=== PATIENT | female | born 1995 | race Asian ===

== ENCOUNTER 2025-01-28 02:28 | Inpatient (IN) ==
--- NOTE | 2025-01-28 02:37 | Obstetrical Progress Note ---
Date of Service January 28, 2025 PG Care Time/CCT Total # of Minutes Spent Total Time Spent with Patient: Total time spent is greater than 50% in coordination of care (as documented) at patient's floor/unit and/or counseling patient: Coding
[2025-01-28] MEDS ORDERED: ACETAMINOPHEN 325 MG TAB PO PRN (03:10)
[2025-01-28] MEDS ORDERED: LIDOCAINE 1% LOCAL 20 ML VIAL INFIL PRN (03:10)
--- NOTE | 2025-01-28 03:13 | History & Physical Report ---
Date of Service January 28, 2025 Assessment & Plan (1) PROM (premature rupture of membranes): Plan PProm. admit for expectant management at present. pitocin aug as indicated. Treat for gbs as status unknown. fetus category one. epidural on demand. anticipate vaginal delivery. History of Present Illness Chief Complaint: rom Primary Care Provider: NO PCP Patient is a 29yof g1 with iup at 36 4/7 who presents complaining of srom at 2am. Clear fluid. Notes some blood tinge on TP here. Not feeling alot of contractions Growth us 01/05--efw 81%, ac 93% and Delivery Plans Persistent umbilical vein *MFM consult 10/23/24, persistent right umbilical vein noted type 1 -->growth u/s 32wks --> echo Normal Fibroid of uterus *noted by MFM H&H 29.1/9.5 on 12/01/24 Started Fe around 31 wks. repeat H&H in 4 weeks OB Labs: Blood Type B Positive 07/24/24 Antibody Screen NEGATIVE 07/24/24 Hgb 9.5 g/dl (12.0-16.0) L 12/01/24 Hct 29.1 % (37.0-47.0) L 12/01/24 MCV 84.1 fL (80.0-100.0) 07/24/24 Plt Count 208 K/uL (130-400) 07/24/24 Rubella IgG Antibody Immune (Immune) 07/24/24 Treponema pallidum Ab Negative (Negative) 12/01/24 Hep Bs Antigen Negative (Negative) 07/24/24 Hepatitis C Antibody Negative (Negative) 07/24/24 HIV 1&2 Ab/P24 Ag 4thGn Negative (Negative) 07/24/24 Glucose 1 Hr 50 gm 140 mg/dl (70-130) H 12/01/24 OB Optional Labs: Chlamydia trachomatis RNA Not Detected (NotDetected) 07/24/24 Neisseria gonorrhoeae RNA Not Detected (NotDetected) 07/24/24 Neg horizon low risk panorama gbs not collected yet Allergies Allergy/AdvReac Type Severity Reaction Status Date / Time No Known Allergies Allergy Verified 01/28/25 02:47 Home Medications Medication Instructions Recorded Confirmed Type ferrous sulfate 325 mg (65 mg 325 mg PO DAILY 01/28/25 01/28/25 History iron) tablet (iron) vits no.124-ferrous fum 1 tab PO DAILY 01/28/25 01/28/25 History 27 mg iron-folic acid 800 mcg tablet ( Vitamin) Patient History Medical History History of chicken pox Surgical History No history of previous surgery Family History Grandmother (Paternal) Colorectal cancer Mother Hypertension Father Hypertension Denies family history of Ovarian cancer Breast cancer Social History Smoking Status: Never smoker Do You Dip or Chew Tobacco: No; Hx Alcohol Use: No Hx Substance Use: No Preferred Language: [place] Citizen Communication Ability: Effective Incident Response Manager Required: No Beliefs That Will Affect Care: None marital status: marital status details: Flaquito Juan (32) Current Living Situation: Spouse Current Living Situation Comment: lives with spouse, no pets current occupational status: unemployed Other Information That Helps Us Care for You: No Feels Safe at Home: Yes Safety Concerns: Feels Safe At This Time Assistive Devices: None OB History g1--present [employer] History noncontributory Physical Exam Constitutional: WD/WN, vitals as above Gastrointestinal (Abdomen): soft, gravid, nt Psychiatric: A+Ox3, euthymic affect Genitourinary: sse--grossly ruptured, clear cx--1.5/75/-2 toco--q3-6min efm--130s with mod variability, accels to 150s, no decels Results & Data Vital Signs (Past 12 Hours) Vital Signs Temp Pulse Resp BP 01/28/25 02:43 36.8 C 83 16 105/61 Coding Level of Care Code None Diagnoses PROM (premature rupture of membranes) O42.90
[2025-01-28] MEDS: LACTATED RINGER'S 1,000 ML IV PRN (03:19)
[2025-01-28] MEDS: PENICILLIN GK 6 MU in DEXTROSE 5% 250 ML IV STA (03:34)
[2025-01-28 03:37] LABS: Hematocrit (blood only) 33.1 % (37.0-47.0); Hemoglobin 11.2 g/dL (12.0-16.0); Mean Corpuscular Hemoglobin 30.0 pg (25.0-34.0); Mean Corpuscular Volume 88.7 fL (80.0-100.0); Platelet Count 146 K/uL (130-400); RDW Standard Deviation 43.4 fL (36.4-46.3); Red Blood Count 3.73 M/uL (4.20-5.40); White Blood Count 6.91 K/ul (4.8-10.8)
[2025-01-28] MEDS: PENICILLIN GK 3 MU in DEXTROSE 5% 100 ML IV PRN (07:30)
--- NOTE | 2025-01-28 07:35 | Labor Progress Brief Note ---
Date of Service January 28, 2025 Subjective patient noting some contractions but not uncomfortable Assessment & Plan (1) PROM (premature rupture of membranes): Plan no significant change. Discussed pros/cons of continued expectant management vs. pit oct now. Patient desires to wait a little longer but will accept if no change by 10am ( 8 yrs post rom). Fetus category one. Admission and Anticipated Discharge Date Admission Date: January 28, 2025 Physical Exam Physical Exam: cx--2/-2 toco--irregular contractions efm--130s with mod variability, accels present, no decels. Results & Data Vital Signs (Past 12 Hours) Vital Signs Temp Pulse Resp BP 01/28/25 07:05 70 95/56 L 01/28/25 06:20 22 01/28/25 05:16 36.8 C 88 16 92/51 L 01/28/25 02:43 36.8 C 83 16 105/61 Coding Level of Care Code None Diagnoses PROM (premature rupture of membranes) O42.90
[2025-01-28] MEDS: OXYTOCIN 30 UNITS/NSS 30 UNITS/500 ML BAG IV PRN (09:00)
--- NOTE | 2025-01-28 09:02 | Labor Progress Brief Note ---
Date of Service January 28, 2025 Subjective pt resting in bed. denies ctx. pcn infusing for gbs unknown. Assessment & Plan (1) 36 weeks gestation of : (2) PROM (premature rupture of membranes): Plan still no labor. advised pitocin now as was recommended before but pt refused and pt does agree to start, now 7 hr after prom. start pitocin. fhts categ 1. pcn for gbs unknown. Admission and Anticipated Discharge Date Admission Date: January 28, 2025 Physical Exam Constitutional: WD/WN, vitals as above Genitourinary: OB Exam Monitor Tracing: + external FHT monitor used, + external uterine monitor used (no ctx), + category I and + normal FHT variability Results & Data Vital Signs (Past 12 Hours) Vital Signs Temp Pulse Resp BP 01/28/25 08:56 72 110/73 01/28/25 07:05 70 95/56 L 01/28/25 06:20 22 01/28/25 05:16 98.2 F 88 16 92/51 L 01/28/25 02:43 98.2 F 83 16 105/61 Coding Level of Care Code None Diagnoses 36 weeks gestation of Z3A.36 PROM (premature rupture of membranes) O42.90
[2025-01-28] MEDS ORDERED: LIDOCAINE 2% MPF LOCAL 5 ML VIAL EPI PRN (12:53)
[2025-01-28] MEDS ORDERED: NALOXONE HCL 0.4 MG/1 ML VIAL/CARP IV PRN (12:53)
[2025-01-28] MEDS ORDERED: SODIUM CHLORIDE 0.9% PF INJ 10 ML VIAL EPI PRN (12:53)
[2025-01-28] MEDS ORDERED: NALOXONE HCL 1 MG in SODIUM CHLORIDE 0.9% 1,000 ML IV PRN (12:53)
[2025-01-28] MEDS ORDERED: BUPIVACAINE 0.25% PF 30 ML VIAL EPI PRN (12:53)
[2025-01-28] MEDS ORDERED: NALBUPHINE HCL INJ 10 MG/ML AMP IV PRN (12:53)
[2025-01-28] MEDS ORDERED: diphenhydrAMINE 50 MG/ML VIAL IV PRN (12:53)
[2025-01-28] MEDS ORDERED: ROPIVACAINE 0.5% PF 5 MG/ML 20 ML VIAL EPI PRN (12:53)
--- NOTE | 2025-01-28 12:53 | Anesthesiology Consultation ---
Date of Service January 28, 2025 Assessment & Plan Chart Review Chart Review: Acceptable Risk for Labor Epidural Consults Requested none History Height/Weight Height: 5 ft 3 in Weight: 57.153 kg Allergies Allergy/AdvReac Type Severity Reaction Status Date / Time No Known Allergies Allergy Verified 01/28/25 02:47 Medications Home Medications Medication Instructions Recorded Confirmed Last Taken ferrous sulfate 325 mg (65 mg 325 mg PO DAILY 01/28/25 01/28/25 01/27/25 iron) tablet (iron) vits no.124-ferrous fum 1 tab PO DAILY 01/28/25 01/28/25 01/27/25 27 mg iron-folic acid 800 mcg tablet ( Vitamin) Active Medications Generic Name Dose Route Start Last Admin Trade Name Freq PRN Reason Stop Dose Admin Lactated Ringer's 1,000 mls @ 125 mls/hr 01/28/25 03:10 01/28/25 07:45 Lr IV 01/30/25 03:09 125 mls/hr .Q8H PRN Infusion L&D Protocol Protocol Penicillin G Potassium 3 mu/ 106 mls @ 100 mls/hr 01/28/25 06:10 01/28/25 11:30 Dextrose IV 02/07/25 06:09 100 mls/hr Q4H PRN Administration GBS(+) Until Delivery Oxytocin 30 units in 500 mls @ 15 mls/hr 01/28/25 07:32 01/28/25 12:30 Pitocin 30 Units/Nss IV 01/30/25 07:31 0.9 units/hr .Q24H PRN 15 mls/hr Labor Induction/Augmentation Titration Protocol 0.9 UNITS/HR Past Medical History Medical History History of chicken pox Past Family History Family History Grandmother (Paternal) Colorectal cancer Mother Hypertension Father Hypertension Denies family history of Ovarian cancer Breast cancer Past Surgical History Surgical History No history of previous surgery Social History Smoking Status: Never smoker Do You Dip or Chew Tobacco: No Hx Alcohol Use: No Hx Substance Use: No substance use type: does not use Physical Exam Vital Signs Last Vital Signs Temp 37.0 C 01/28/25 12:39 Pulse 66 01/28/25 12:33 Resp 18 01/28/25 12:39 BP 111/70 01/28/25 12:33 Testing Laboratory Results 01/28/25 03:24
[2025-01-28] MEDS: LIDOCAINE 2%/EPINEPHRINE 1:200,000 20 ML PF ONE (13:10)
[2025-01-28] MEDS: fentANYL 2 MCG/ML BUPIVacaine 0.125%-NSS 100ML BAG ONE (13:20)
[2025-01-28] MEDS: SODIUM CHLORIDE 0.9% PF INJ 10 ML VIAL ONE (13:30)
[2025-01-28] MEDS: LIDOCAINE 2%/EPINEPHRINE 1:200,000 20 ML PF EPI STA (13:30)
[2025-01-28] MEDS: BUPIVACAINE 0.25% PF 30 ML VIAL EPI STA (13:31)
[2025-01-28] MEDS: BUPIVACAINE 0.25% PF 30 ML VIAL ONE (13:31)
[2025-01-28] MEDS: SODIUM CHLORIDE 0.9% PF INJ 10 ML VIAL EPI STA (13:31)
--- NOTE | 2025-01-28 16:17 | Labor Progress Brief Note ---
Date of Service January 28, 2025 Subjective comfortable Assessment & Plan (1) 36 weeks gestation of : (2) PROM (premature rupture of membranes): Plan good cx change. c/w pit and pcn. fhts categ 1 Admission and Anticipated Discharge Date Admission Date: January 28, 2025 Physical Exam Constitutional: WD/WN, vitals as above Genitourinary: Manual OB Exam: + cervical dilation 4 cm, + cervical effacement 100% and + station -1 Results & Data Vital Signs (Past 12 Hours) Vital Signs Temp Pulse Resp BP Pulse Ox 01/28/25 16:11 70 100 01/28/25 16:06 81 100 01/28/25 16:02 84 106/65 01/28/25 16:01 75 100 01/28/25 15:56 82 100 01/28/25 15:51 95 H 100 01/28/25 15:46 100 01/28/25 15:46 83 01/28/25 15:46 75 105/63 01/28/25 15:41 66 100 01/28/25 15:36 65 100 01/28/25 15:32 98.4 F 66 16 113/76 01/28/25 15:31 75 97 01/28/25 15:27 77 87/54 L 01/28/25 15:26 83 100 01/28/25 15:21 97 H 100 01/28/25 15:16 93 H 113/68 100 01/28/25 15:11 83 97 01/28/25 15:06 75 98 01/28/25 15:02 83 104/68 01/28/25 15:01 86 99 01/28/25 14:56 65 99 01/28/25 14:51 68 99 01/28/25 14:46 100 01/28/25 14:46 74 01/28/25 14:46 85 111/68 01/28/25 14:41 75 100 01/28/25 14:36 83 100 01/28/25 14:32 88 113/63 01/28/25 14:31 86 100 01/28/25 14:26 72 100 01/28/25 14:21 74 100 01/28/25 14:20 16 01/28/25 14:20 98.1 F 16 01/28/25 14:16 69 100 01/28/25 14:15 73 100/65 01/28/25 14:11 83 99 01/28/25 14:06 80 100 01/28/25 14:01 100 01/28/25 14:01 69 01/28/25 14:01 75 95/59 L 01/28/25 13:56 69 100 01/28/25 13:51 66 100 01/28/25 13:46 77 90/52 L 100 01/28/25 13:41 70 99 01/28/25 13:36 72 100 01/28/25 13:31 69 99 01/28/25 13:30 67 98/53 L 01/28/25 13:28 72 98/56 L 01/28/25 13:26 74 100 01/28/25 13:25 68 97/55 L 01/28/25 13:22 72 99/56 L 01/28/25 13:21 68 100 01/28/25 13:19 71 97/53 L 01/28/25 13:16 100 01/28/25 13:16 64 01/28/25 13:16 71 97/55 L 01/28/25 13:11 69 100 01/28/25 13:06 74 100 01/28/25 13:01 83 100 01/28/25 12:56 77 100 01/28/25 12:39 18 01/28/25 12:39 98.6 F 18 01/28/25 12:33 98.6 F 66 111/70 01/28/25 11:30 73 113/70 01/28/25 10:24 98.4 F 71 16 107/65 01/28/25 09:03 18 01/28/25 09:03 98.8 F 18 01/28/25 08:56 72 110/73 01/28/25 07:05 70 95/56 L 01/28/25 06:20 22 01/28/25 05:16 98.2 F 88 16 92/51 L Coding Level of Care Code None Diagnoses 36 weeks gestation of Z3A.36 PROM (premature rupture of membranes) O42.90
--- NOTE | 2025-01-28 17:54 | Labor Progress Brief Note ---
Date of Service January 28, 2025 Subjective comfortable Assessment & Plan (1) 36 weeks gestation of : (2) PROM (premature rupture of membranes): Plan good cx change. c/w pit. fhts categ 1. begin 2nd stage soon. Admission and Anticipated Discharge Date Admission Date: January 28, 2025 Physical Exam Constitutional: WD/WN, vitals as above Genitourinary: Manual OB Exam: + cervical dilation 9 cm, + cervical effacement 100% and + station + 2 OB Exam Monitor Tracing: + external FHT monitor used, + external uterine monitor used (q2-3, pit at 19), + category I and + normal FHT variability Results & Data Vital Signs (Past 12 Hours) Vital Signs Temp Pulse Resp BP Pulse Ox 01/28/25 17:46 74 111/65 100 01/28/25 17:41 85 100 01/28/25 17:36 80 100 01/28/25 17:32 78 114/64 01/28/25 17:31 80 100 01/28/25 17:26 84 100 01/28/25 17:21 92 H 100 01/28/25 17:17 73 106/60 01/28/25 17:16 71 100 01/28/25 17:11 66 100 01/28/25 17:06 73 100 01/28/25 17:05 18 01/28/25 17:05 98.1 F 18 01/28/25 17:01 100 01/28/25 17:01 67 01/28/25 17:01 74 107/66 01/28/25 16:56 71 100 01/28/25 16:51 70 100 01/28/25 16:47 67 103/66 01/28/25 16:46 67 100 01/28/25 16:41 70 100 01/28/25 16:36 70 100 01/28/25 16:31 93 H 105/66 99 01/28/25 16:26 70 100 01/28/25 16:21 69 100 01/28/25 16:16 100 01/28/25 16:16 78 01/28/25 16:16 75 110/70 01/28/25 16:11 70 100 01/28/25 16:06 81 100 01/28/25 16:02 84 106/65 01/28/25 16:01 75 100 01/28/25 15:56 82 100 11/12/25 15:51 95 H 100 01/28/25 15:46 100 01/28/25 15:46 83 01/28/25 15:46 75 105/63 01/28/25 15:41 66 100 01/28/25 15:36 65 100 01/28/25 15:32 98.4 F 66 16 113/76 01/28/25 15:31 75 97 01/28/25 15:27 77 87/54 L 01/28/25 15:26 83 100 01/28/25 15:21 97 H 100 01/28/25 15:16 93 H 113/68 100 01/28/25 15:11 83 97 01/28/25 15:06 75 98 01/28/25 15:02 83 104/68 01/28/25 15:01 86 99 01/28/25 14:56 65 99 01/28/25 14:51 68 99 01/28/25 14:46 100 01/28/25 14:46 74 01/28/25 14:46 85 111/68 01/28/25 14:41 75 100 01/28/25 14:36 83 100 01/28/25 14:32 88 113/63 01/28/25 14:31 86 100 01/28/25 14:26 72 100 01/28/25 14:21 74 100 01/28/25 14:20 16 01/28/25 14:20 98.1 F 16 01/28/25 14:16 69 100 01/28/25 14:15 73 100/65 01/28/25 14:11 83 99 01/28/25 14:06 80 100 01/28/25 14:01 100 01/28/25 14:01 69 01/28/25 14:01 75 95/59 L 01/28/25 13:56 69 100 01/28/25 13:51 66 100 01/28/25 13:46 77 90/52 L 100 01/28/25 13:41 70 99 01/28/25 13:36 72 100 01/28/25 13:31 69 99 01/28/25 13:30 67 98/53 L 01/28/25 13:28 72 98/56 L 01/28/25 13:26 74 100 01/28/25 13:25 68 97/55 L 01/28/25 13:22 72 99/56 L 01/28/25 13:21 68 100 01/28/25 13:19 71 97/53 L 01/28/25 13:16 100 01/28/25 13:16 64 01/28/25 13:16 71 97/55 L 01/28/25 13:11 69 100 01/28/25 13:06 74 100 01/28/25 13:01 83 100 01/28/25 12:56 77 100 01/28/25 12:39 18 01/28/25 12:39 98.6 F 18 01/28/25 12:33 98.6 F 66 111/70 01/28/25 11:30 73 113/70 01/28/25 10:24 98.4 F 71 16 107/65 01/28/25 09:03 18 01/28/25 09:03 98.8 F 18 01/28/25 08:56 72 110/73 01/28/25 07:05 70 95/56 L 01/28/25 06:20 22 Coding Level of Care Code None Diagnoses 36 weeks gestation of Z3A.36 PROM (premature rupture of membranes) O42.90
--- NOTE | 2025-01-28 20:14 | Labor Progress Brief Note ---
Date of Service January 28, 2025 Subjective pt pushing. Assessment & Plan (1) 36 weeks gestation of : (2) PROM (premature rupture of membranes): Plan is pushing. fhts categ1. Admission and Anticipated Discharge Date Admission Date: January 28, 2025 Physical Exam Constitutional: WD/WN, vitals as above Genitourinary: Manual OB Exam: + cervical dilation 10 cm OB Exam Monitor Tracing: + external FHT monitor used, + external uterine monitor used, + category I, + normal FHT variability and + variable decelerations isolated Results & Data Vital Signs (Past 12 Hours) Vital Signs Temp Pulse Resp BP Pulse Ox 01/28/25 20:06 96 H 100 01/28/25 20:01 92 H 108/64 100 01/28/25 19:56 86 100 01/28/25 19:51 91 H 100 01/28/25 19:46 86 106/67 100 01/28/25 19:41 89 100 01/28/25 19:36 86 100 01/28/25 19:31 94 H 115/72 100 01/28/25 19:26 97 H 100 01/28/25 19:21 90 100 01/28/25 19:16 103 H 111/70 100 01/28/25 19:11 83 100 01/28/25 19:10 16 01/28/25 19:10 98.2 F 16 01/28/25 19:06 96 H 100 01/28/25 19:02 113 H 121/60 01/28/25 19:01 93 H 100 01/28/25 18:56 83 100 01/28/25 18:51 79 100 01/28/25 18:47 83 108/64 01/28/25 18:46 76 100 01/28/25 18:41 83 100 01/28/25 18:36 88 100 01/28/25 18:32 78 115/70 01/28/25 18:31 86 100 01/28/25 18:26 83 100 01/28/25 18:21 84 100 01/28/25 18:17 83 112/69 01/28/25 18:16 88 100 01/28/25 18:11 78 100 01/28/25 18:06 82 100 01/28/25 18:01 81 100 01/28/25 18:00 86 110/66 01/28/25 17:56 85 100 01/28/25 17:55 16 01/28/25 17:55 98.2 F 16 01/28/25 17:51 79 100 01/28/25 17:46 74 111/65 100 01/28/25 17:41 85 100 01/28/25 17:36 80 100 01/28/25 17:32 78 114/64 01/28/25 17:31 80 100 01/28/25 17:26 84 100 01/28/25 17:21 92 H 100 01/28/25 17:17 73 106/60 01/28/25 17:16 71 100 01/28/25 17:11 66 100 01/28/25 17:06 73 100 01/28/25 17:05 18 01/28/25 17:05 98.1 F 18 01/28/25 17:01 100 01/28/25 17:01 67 01/28/25 17:01 74 107/66 01/28/25 16:56 71 100 01/28/25 16:51 70 100 01/28/25 16:47 67 103/66 01/28/25 16:46 67 100 01/28/25 16:41 70 100 01/28/25 16:36 70 100 01/28/25 16:31 93 H 105/66 99 01/28/25 16:26 70 100 01/28/25 16:21 69 100 01/28/25 16:16 100 01/28/25 16:16 78 01/28/25 16:16 75 110/70 01/28/25 16:11 70 100 01/28/25 16:06 81 100 01/28/25 16:02 84 106/65 01/28/25 16:01 75 100 01/28/25 15:56 82 100 01/28/25 15:51 95 H 100 01/28/25 15:46 100 01/28/25 15:46 83 01/28/25 15:46 75 105/63 01/28/25 15:41 66 100 01/28/25 15:36 65 100 01/28/25 15:32 98.4 F 66 16 113/76 01/28/25 15:31 75 97 01/28/25 15:27 77 87/54 L 01/28/25 15:26 83 100 01/28/25 15:21 97 H 100 01/28/25 15:16 93 H 113/68 100 01/28/25 15:11 83 97 01/28/25 15:06 75 98 01/28/25 15:02 83 104/68 01/28/25 15:01 86 99 01/28/25 14:56 65 99 01/28/25 14:51 68 99 01/28/25 14:46 100 01/28/25 14:46 74 01/28/25 14:46 85 111/68 01/28/25 14:41 75 100 01/28/25 14:36 83 100 01/28/25 14:32 88 113/63 01/28/25 14:31 86 100 01/28/25 14:26 72 100 01/28/25 14:21 74 100 01/28/25 14:20 16 01/28/25 14:20 98.1 F 16 01/28/25 14:16 69 100 01/28/25 14:15 73 100/65 01/28/25 14:11 83 99 01/28/25 14:06 80 100 01/28/25 14:01 100 01/28/25 14:01 69 01/28/25 14:01 75 95/59 L 01/28/25 13:56 69 100 01/28/25 13:51 66 100 01/28/25 13:46 77 90/52 L 100 01/28/25 13:41 70 99 01/28/25 13:36 72 100 01/28/25 13:31 69 99 01/28/25 13:30 67 98/53 L 01/28/25 13:28 72 98/56 L 01/28/25 13:26 74 100 01/28/25 13:25 68 97/55 L 01/28/25 13:22 72 99/56 L 01/28/25 13:21 68 100 01/28/25 13:19 71 97/53 L 01/28/25 13:16 100 01/28/25 13:16 64 01/28/25 13:16 71 97/55 L 01/28/25 13:11 69 100 01/28/25 13:06 74 100 01/28/25 13:01 83 100 01/28/25 12:56 77 100 01/28/25 12:39 18 01/28/25 12:39 98.6 F 18 01/28/25 12:33 98.6 F 66 111/70 01/28/25 11:30 73 113/70 01/28/25 10:24 98.4 F 71 16 107/65 01/28/25 09:03 18 01/28/25 09:03 98.8 F 18 01/28/25 08:56 72 110/73 Coding Level of Care Code None Diagnoses 36 weeks gestation of Z3A.36 PROM (premature rupture of membranes) O42.90
[2025-01-28] MEDS: CALCIUM CARBONATE 500 MG CHEWABLE TAB PO PRN (20:49)
[2025-01-28] MEDS: ONDANSETRON INJ 2 MG/ML 2 ML VIAL ONE (21:09)
[2025-01-28] MEDS: ONDANSETRON INJ 2 MG/ML 2 ML VIAL IV STA (21:13)
[2025-01-28] MEDS: fentANYL 2 MCG/ML BUPIVacaine 0.125%-NSS 100ML BAG EPI PRN (21:44)
--- NOTE | 2025-01-28 23:04 | Communication Note ---
Date of Service: January 28, 2025 with existing epidural.
[2025-01-28] MEDS ORDERED: LIDOCAINE 2%/EPINEPHRINE 1:200,000 20 ML PF ONE (23:07)
--- NOTE | 2025-01-28 23:53 | Labor Progress Brief Note ---
Date of Service January 28, 2025 Subjective ctsp by nurse to assess pt pushing. nurse not noting any significant maternal effort. pt pushing for about 1.5h. on arrival pt in bed, spouse at bedside. Assessment & Plan (1) 36 weeks gestation of : (2) PROM (premature rupture of membranes): Plan assessment of pt pushing shows no real maternal effort given. cannot offer vacuum assistance and therefore if not willing to give effective pushing or if pushing not resulting in descent, rec proceeding with c/s. at this time categ 2 tracing as well that was worrisome, pt was repositioned and ultimately pitocin stopped. she and spouse at first state ready to proceed with c/s but then upon bringing in consent, patient expresses desire to feel more at perineum so that she can try to push more effectively and expresses desire to cont expulsive efforts. as this conversation happening, decels were lessening as far as deep variables and spont accels noted with normal baseline variability in between ctx. coached pt in pushing through additional ctx and baby tolerated that well. anesth was present and given pt desires to feel more, epidural was stopped. pt apparently had signifcant pain prior to getting the epidural and was reminded of this but she still wanted to attempt feeling more so she could try to push more effectively. at this point fhts categ 1 but with ctx spacing out and so pit restarted at 12 (half of prior dosing). pt will begin pushing with more of urge to push. anesth and peds notified of proceeding to OR and now notified that is on hold as pt desires this plan and given fhts categ 1 ok to be more remote from delivery at this point. spent time at bedside with couple and they are aware of risks, benefits of plan and consequences and alt of proceeding with c/s now. the latter of which pt states she does not prefer if she can feel more to push. Admission and Anticipated Discharge Date Admission Date: January 28, 2025 Physical Exam Constitutional: WD/WN, vitals as above Genitourinary: Manual OB Exam: + cervical dilation 10 cm, + cervical effacement 100% and + station + 2 (molding ) OB Exam Monitor Tracing: + external FHT monitor used, + external uterine monitor used (q2-3 pit at 23), + category II, + normal FHT variability and + variable decelerations recurrent pushed with patient x 2-3 ctx. no maternal effort noted. pt appears exhausted but more concerned that she cannot feel significant urge to push. Results & Data Vital Signs (Past 12 Hours) Vital Signs Temp Pulse Resp BP Pulse Ox 01/28/25 23:36 87 100 01/28/25 23:31 77 100 01/28/25 23:30 81 100/60 01/28/25 23:26 84 100 01/28/25 23:21 89 100 01/28/25 23:17 78 101/60 01/28/25 23:16 89 100 01/28/25 23:11 81 100 01/28/25 23:06 119 H 97 01/28/25 23:01 100 01/28/25 23:01 89 01/28/25 23:01 80 109/58 L 01/28/25 22:56 88 99 01/28/25 22:51 90 99 01/28/25 22:50 101 H 90 01/28/25 22:46 81 111/59 L 97 01/28/25 22:45 86 88 L 01/28/25 22:41 106 H 98 01/28/25 22:36 109 H 99 01/28/25 22:33 106 H 93 01/28/25 22:31 98 01/28/25 22:31 82 01/28/25 22:31 81 104/58 L 01/28/25 22:26 93 H 98 01/28/25 22:22 121 H 92 01/28/25 22:21 105 H 97 01/28/25 22:16 85 109/58 L 99 01/28/25 22:11 113 H 95 01/28/25 22:08 105 H 91 01/28/25 22:06 114 H 97 01/28/25 22:02 114 H 91 01/28/25 22:01 107 H 97 01/28/25 21:56 102 H 97 01/28/25 21:51 103 H 96 01/28/25 21:46 95 01/28/25 21:46 98 H 01/28/25 21:46 83 103/59 L 01/28/25 21:44 105 H 92 01/28/25 21:41 95 H 98 01/28/25 21:37 108 H 89 L 01/28/25 21:36 88 98 01/28/25 21:31 90 106/73 99 01/28/25 21:30 116 H 92 01/28/25 21:26 87 100 01/28/25 21:21 88 97 01/28/25 21:17 88 114/70 01/28/25 21:16 87 96 01/28/25 21:15 16 01/28/25 21:15 98.4 F 16 01/28/25 21:11 84 98 01/28/25 21:06 102 H 98 01/28/25 21:01 100 01/28/25 21:01 105 H 01/28/25 21:01 97 H 108/67 01/28/25 20:56 102 H 99 01/28/25 20:51 117 H 98 01/28/25 20:46 96 01/28/25 20:46 124 H 01/28/25 20:46 126 H 115/72 01/28/25 20:41 137 H 98 01/28/25 20:37 86 93 01/28/25 20:36 84 100 01/28/25 20:31 97 H 112/59 L 100 01/28/25 20:26 94 H 100 01/28/25 20:21 104 H 100 01/28/25 20:16 132 H 99 01/28/25 20:11 97 H 99 01/28/25 20:06 96 H 100 01/28/25 20:01 92 H 108/64 100 01/28/25 19:56 86 100 01/28/25 19:51 91 H 100 01/28/25 19:46 86 106/67 100 01/28/25 19:41 89 100 01/28/25 19:36 86 100 01/28/25 19:31 94 H 115/72 100 01/28/25 19:26 97 H 100 01/28/25 19:21 90 100 01/28/25 19:16 103 H 111/70 100 01/28/25 19:11 83 100 01/28/25 19:10 16 01/28/25 19:10 98.2 F 16 01/28/25 19:06 96 H 100 01/28/25 19:02 113 H 121/60 01/28/25 19:01 93 H 100 01/28/25 18:56 83 100 01/28/25 18:51 79 100 01/28/25 18:47 83 108/64 01/28/25 18:46 76 100 01/28/25 18:41 83 100 01/28/25 18:36 88 100 01/28/25 18:32 78 115/70 01/28/25 18:31 86 100 01/28/25 18:26 83 100 01/28/25 18:21 84 100 01/28/25 18:17 83 112/69 01/28/25 18:16 88 100 01/28/25 18:11 78 100 01/28/25 18:06 82 100 01/28/25 18:01 81 100 01/28/25 18:00 86 110/66 01/28/25 17:56 85 100 01/28/25 17:55 16 01/28/25 17:55 98.2 F 16 01/28/25 17:51 79 100 01/28/25 17:46 74 111/65 100 01/28/25 17:41 85 100 01/28/25 17:36 80 100 01/28/25 17:32 78 114/64 01/28/25 17:31 80 100 01/28/25 17:26 84 100 01/28/25 17:21 92 H 100 01/28/25 17:17 73 106/60 01/28/25 17:16 71 100 01/28/25 17:11 66 100 01/28/25 17:06 73 100 01/28/25 17:05 18 01/28/25 17:05 98.1 F 18 01/28/25 17:01 100 01/28/25 17:01 67 01/28/25 17:01 74 107/66 01/28/25 16:56 71 100 01/28/25 16:51 70 100 01/28/25 16:47 67 103/66 01/28/25 16:46 67 100 01/28/25 16:41 70 100 01/28/25 16:36 70 100 01/28/25 16:31 93 H 105/66 99 01/28/25 16:26 70 100 01/28/25 16:21 69 100 01/28/25 16:16 100 01/28/25 16:16 78 01/28/25 16:16 75 110/70 01/28/25 16:11 70 100 01/28/25 16:06 81 100 11/12/25 16:02 84 106/65 01/28/25 16:01 75 100 01/28/25 15:56 82 100 01/28/25 15:51 95 H 100 01/28/25 15:46 100 01/28/25 15:46 83 01/28/25 15:46 75 105/63 01/28/25 15:41 66 100 01/28/25 15:36 65 100 01/28/25 15:32 98.4 F 66 16 113/76 01/28/25 15:31 75 97 01/28/25 15:27 77 87/54 L 01/28/25 15:26 83 100 01/28/25 15:21 97 H 100 01/28/25 15:16 93 H 113/68 100 01/28/25 15:11 83 97 01/28/25 15:06 75 98 01/28/25 15:02 83 104/68 01/28/25 15:01 86 99 01/28/25 14:56 65 99 01/28/25 14:51 68 99 01/28/25 14:46 100 01/28/25 14:46 74 01/28/25 14:46 85 111/68 01/28/25 14:41 75 100 01/28/25 14:36 83 100 01/28/25 14:32 88 113/63 01/28/25 14:31 86 100 01/28/25 14:26 72 100 01/28/25 14:21 74 100 01/28/25 14:20 16 01/28/25 14:20 98.1 F 16 01/28/25 14:16 69 100 01/28/25 14:15 73 100/65 01/28/25 14:11 83 99 01/28/25 14:06 80 100 01/28/25 14:01 100 01/28/25 14:01 69 01/28/25 14:01 75 95/59 L 01/28/25 13:56 69 100 01/28/25 13:51 66 100 01/28/25 13:46 77 90/52 L 100 01/28/25 13:41 70 99 01/28/25 13:36 72 100 01/28/25 13:31 69 99 01/28/25 13:30 67 98/53 L 01/28/25 13:28 72 98/56 L 01/28/25 13:26 74 100 01/28/25 13:25 68 97/55 L 01/28/25 13:22 72 99/56 L 01/28/25 13:21 68 100 01/28/25 13:19 71 97/53 L 01/28/25 13:16 100 01/28/25 13:16 64 01/28/25 13:16 71 97/55 L 01/28/25 13:11 69 100 01/28/25 13:06 74 100 01/28/25 13:01 83 100 01/28/25 12:56 77 100 01/28/25 12:39 18 01/28/25 12:39 98.6 F 18 01/28/25 12:33 98.6 F 66 111/70 Coding Level of Care Code None Diagnoses 36 weeks gestation of Z3A.36 PROM (premature rupture of membranes) O42.90
--- NOTE | 2025-01-29 00:07 | Communication Note ---
Date of Service: January 29, 2025 called by nursing to do strip review. baseline now 150 min variability, early decels, one late decel. pt apparently not feeling pressure, epidural has been off for 40min. will cont close evaluation. will need to push or proceed with c/s if fetus not tolerating labor pattern.
[2025-01-29] MEDS ORDERED: SODIUM CHLORIDE 0.9% 100 ML IV PRN ×2 (00:52→16:53)
[2025-01-29 01:14] LABS: Hematocrit (blood only) 30.0 % (37.0-47.0); Hemoglobin 10.2 g/dL (12.0-16.0)
--- NOTE | 2025-01-29 01:20 | Delivery Summary ---
Vaginal Delivery Summary Date of Service January 29, 2025 Vaginal Delivery Summary and 3rd Degree LAC The patient resumed maternal efforts and evidence of effective pushing. Fhts with early decels, good variability but baseline was wandering and difficult to interpret. +scalp stim response however. Offered and accepted vacuum assistance. Bladder was recently emptied. SVE c/c/+2-+3 with molding. With 2 pulls over 2 ctx and no pop-offs, she pushed to deliver a viable male infant Apgars 3, 7 and 10 via over partial 3rd degree perineal laceration. Shoulders and body delivered with ease and further maternal expulsive efforts. Mouth and nose bulb suctioned and made initial crying effort but then was not vigorous and so cord clamped and to maternal abdomen where the cord was then doubly clamped and cut. Infant taken to radiant warmer. Placenta delivered spo ntaneously and intact, three-vessel cord. Hemostasis achieved with dilute pitocin and uterine massage. Cervix intact. Bilateral sulcal tears noted L>R and reapproximated to level of introitus with 3-0 vicyrl. Partial 3rd degree laceration repaired in layers with 2-0 and 3-0 vicryl, reapproximating the fascia of the anal sphincter in interrupted sutures of 2-0 vicryl. QBL 935 cc. Patient complained of dizziness and lightheadedness during repair and delivery of placenta. BP 50/29 and pulse 101, 2nd iv site created and LR bolused. T&C x 2 units and held and stat h/h ordered. Pt began to feel better. Uterine tone and bleeding improved. Hgb returned 10 and vs improved. Mother and baby stable in recovery. [facility] Vaginal Delivery Charge Delivery Type Details: and 3rd Degree LAC
[2025-01-29] MEDS: OXYTOCIN 30 UNITS/NSS 30 UNITS/500 ML BAG IV PRN (01:25)
[2025-01-29] MEDS ORDERED: OXYTOCIN 30 UNITS/NSS 30 UNITS/500 ML BAG IV PRN (01:26)
[2025-01-29] MEDS ORDERED: HYDROCORTISONE ACETATE 25 MG SUPP PR PRN (01:26)
[2025-01-29] MEDS ORDERED: BENZOCAINE 20% SPRY 85 APPLN/85 GM CAN EXT PRN (01:26)
[2025-01-29 01:40] LABS: Base Excess Cord Venous Blood -7.1 mEq/L (-7.7-1.9); Cord Venous Blood PO2 < 20 mmHg (14.1-43.3); O2 Saturation Cord Venous Bld < 60.0 % (<68)
[2025-01-29] MEDS: DIPHTHER/TETAN/PERTUS Vaccine (Tdap, Adol/Adult) 0.5mL IM ONE (02:54)
[2025-01-29] MEDS: DOCUSATE SODIUM SYRUP 100 MG/10 ML UDC PO SCH (09:30)
[2025-01-29] MEDS: PRENATAL VITAMIN 1 TAB PO SCH (09:31)
[2025-01-29] MEDS: DOCUSATE SODIUM 100 MG CAP PO SCH (11:16)
--- NOTE | 2025-01-29 11:30 | Anesthesia Procedure Note ---
Date of Service January 29, 2025 Anesthesia Post Epidural Note Vital Signs Vital Signs: Temp Pulse Resp BP Pulse Ox O2 Del Method 36.9 C 111 H 16 108/71 99 Room Air 01/29/25 08:49 01/29/25 08:49 01/29/25 08:49 01/29/25 08:49 01/29/25 08:49 01/29/25 08:49 Pain Intensity Perineal: Pain Intensity: 2 Notes Mental Status: alert / awake / arousable Nausea / Vomiting: adequately controlled Pain: adequately controlled Airway Patency, RR, SpO2: stable & adequate BP & HR: stable & adequate Hydration State: stable & adequate Neuraxial Anesthesia: was administered and sensory block is resolving Anesthetic Complications: no major complications apparent and Pt Satisfied with anesthetic care Epidural: Removed without complications and With tip intact
[2025-01-29 15:56] LABS: Hematocrit (blood only) 20.3 % (37.0-47.0); Hemoglobin 6.8 g/dL (12.0-16.0)
[2025-01-29] MEDS: ACETAMINOPHEN 325 MG TAB PO PRN (17:14)
--- NOTE | 2025-01-29 17:33 | Obstetrical Progress Note ---
Date of Service January 29, 2025 Assessment & Plan (1) Status post vacuum-assisted vaginal delivery: (2) Acute blood loss anemia: Plan Patient is PPD#1 from VAVD Dizziness and passed out with ambulation; bleeding currently stable with firm uterus and pt now feeling better H/H repeated today and hemoglobin down to 6.8 Consented for blood at bedside; will transfuse 1u pRBCs since hgb <7 with symptoms Will order PO iron supplement; encouraged hydration and meals Repeat H/H in AM Day #:: 1 Subjective At bedside to check on patient -- felt dizzy with ambulation earlier and passed out in the bathroom. Currently feeling better after laying down. RN reports her uterus was slightly boggy intermittently but firms with massage. Review of Systems All systems reviewed & are unremarkable except as noted in HPI & below Physical Exam Constitutional WD/WN, vitals as above Respiratory normal respiratory effort Psychiatric Orientation: alert and oriented x 3 Genitourinary Speculum/Bimanual Exam: uterus not boggy (firm at umbilicus level) Results & Data Vital Signs (Past 12 Hours) Vital Signs Temp Pulse Resp BP Pulse Ox O2 Del Method 01/29/25 13:05 36.4 C L 80 14 106/62 99 Room Air 01/29/25 12:55 37.3 C 99 H 16 97/58 L 98 Room Air 01/29/25 08:49 36.9 C 111 H 16 108/71 99 Room Air Laboratory Results Laboratory Results - last 24 hr 01/28/25 01/29/25 01/29/25 03:24 00:34 00:57 Hgb 10.2 L Hct 30.0 L Cord VBG pH 7.18 L Cord VBG pCO2 59 H Cord VBG pO2 < 20 Cord VBG HCO3 22 Cord VBG Base Excess -7.1 Cord VBG O2 Sat < 60.0 Blood Gas Comments RUBIN Blood Type B Positive Antibody Screen NEGATIVE Crossmatch See Detail 01/29/25 15:17 Hgb 6.8 L* D Hct 20.3 L* Cord VBG pH Cord VBG pCO2 Cord VBG pO2 Cord VBG HCO3 Cord VBG Base Excess Cord VBG O2 Sat Blood Gas Comments Blood Type Antibody Screen Crossmatch
[2025-01-29] MEDS: FERROUS SULFATE 325 MG TAB PO SCH (20:30)
--- NOTE | 2025-01-30 06:13 | Obstetrical Progress Note ---
Date of Service January 30, 2025 Assessment & Plan (1) Acute blood loss anemia: (2) Status post vacuum-assisted vaginal delivery: Plan 29 yo post- day 1 s/p . Feels well today. Vital signs stable Continue post- care Encourage ambulation and Pain controlled with ibuprofen We will wait for morning H&H and plan for potential discharge today Recommend daily iron supplement to be used with stool softener on discharge Continue working on increased oral hydration Follow up with Dr. Haines in 6 weeks for appt Admission and Anticipated Discharge Date Admission Date: January 28, 2025 Supervising Physician Co-Signing Physician Notes Resident Physician Supervision Note: I interviewed and examined the patient. Discussed with Dr. Gifford and agree with findings and plan as documented in the note. Any exceptions or clarifications are listed here: Pt is PPD#2 from VAVD. Doing better this morning, s/p 1u PRBCs and states she feels improved from this. Breast and bottlefeeding. Bleeding stable. Uterus firm -1, trace lower extremity edema. Hgb mello appropriately to 8 after unit. Plan for DC home today, reviewed bleeding and anemia precautions; strongly encouraged iron intake/supplement with bowel regimen. Documented By: Sade Lawrence MD Subjective 29 yo post- day 1 s/p . Ambulation: ambulating normally Voiding: no voiding problems Passing Gas:: Yes Passing Stool:: No Diet Tolerance:: regular diet Lochia:: Small Feeding Type:: breast and bottle feeding Current Pain Level: 2/10 Resting comfortably this AM in NAD. Denies BRITT, CP, SOB, N/V/D, LE pain/swelling. Reports dizziness has improved. She has refused oral iron as she is worried it will cause more constipation and BMs will be painful. Review of Systems Review of Systems: All systems reviewed & are unremarkable except as noted in HPI & below Physical Exam Physical Exam: General: patient resting comfortably, NAD, non-toxic in appearance, AA&O x 4, answers questions appropriately. Skin: warm, dry, intact HEENT: NC/AT, anicteric sclera, conjunctiva without injection, moist mucus membranes. Heart: +S1/S2, regular, no m/r/g Lungs: equal air entry bilaterally, no rales/rhonchi/wheezes Abd: +BS, soft, NT/ND, uterine fundus firm 3 FBs below umbilicus Ext: warm, no clubbing/cyanosis or edema, Jose's neg. Neuro: nonfocal, patient AA&O x 4, speech intact, no facial droop, moving all extremities on command. Results & Data Vital Signs (Past 12 Hours) Vital Signs Temp Pulse Pulse Resp BP BP Pulse Ox 01/30/25 03:15 37.0 C 78 16 105/71 97 01/29/25 23:30 37.0 C 88 16 98/60 L 98 01/29/25 19:52 37.0 C 84 14 104/65 97 01/29/25 19:40 36.9 C 88 16 113/72 98 01/29/25 18:40 37.2 C 14 109/70 98 O2 Del Method 01/30/25 03:15 Room Air 01/29/25 23:30 Room Air 01/29/25 19:52 01/29/25 19:40 01/29/25 18:40 Laboratory Results OB Labs: Blood Type B Positive 07/24/24 Antibody Screen NEGATIVE 07/24/24 Hgb 9.5 g/dl (12.0-16.0) L 12/01/24 Hct 29.1 % (37.0-47.0) L 12/01/24 MCV 84.1 fL (80.0-100.0) 07/24/24 Plt Count 208 K/uL (130-400) 07/24/24 Rubella IgG Antibody Immune (Immune) 07/24/24 Treponema pallidum Ab Negative (Negative) 12/01/24 Hep Bs Antigen Negative (Negative) 07/24/24 Hepatitis C Antibody Negative (Negative) 07/24/24 HIV 1&2 Ab/P24 Ag 4thGn Negative (Negative) 07/24/24 Glucose 1 Hr 50 gm 140 mg/dl (70-130) H 12/01/24 OB Optional Labs: Chlamydia trachomatis RNA Not Detected (NotDetected) 07/24/24 Neisseria gonorrhoeae RNA Not Detected (NotDetected) 07/24/24 Resident Activity Tracking Resident Involvement: Resident Care Provided Care Provided: OB Delivery
[2025-01-30 07:28] LABS: Hematocrit (blood only) 23.4 % (37.0-47.0); Hemoglobin 8.0 g/dL (12.0-16.0)
[2025-01-30] MEDS: IBUPROFEN 600 MG TAB PO PRN (09:17)
[2025-01-30 19:10] VITALS: O2SAT 98
[2025-01-31 00:33] VITALS: RESP 16
--- NOTE | 2025-01-31 06:53 | Obstetrical Progress Note ---
Date of Service January 31, 2025 Assessment & Plan (1) Acute blood loss anemia: (2) Status post vacuum-assisted vaginal delivery: Plan 29 yo post- day 1 s/p . Feels well today. Vital signs stable Continue post- care Encourage ambulation and Pain controlled with ibuprofen Recommend daily iron supplement to be used with stool softener on discharge Continue working on increased oral hydration Discharge today, follow up with Dr. Haines in 6 weeks for appt Admission and Anticipated Discharge Date Admission Date: January 28, 2025 Supervising Physician Co-Signing Physician Notes Resident Physician Supervision Note: I interviewed and examined the patient. Discussed with Dr. Gifford and agree with findings and plan as documented in the note. Any exceptions or clarifications are listed here: [None] Documented By: Nishant Hutson MD, FACOG Subjective 29 yo post- day 2 s/p . Ambulation: ambulating normally Voiding: no voiding problems Passing Gas:: Yes Passing Stool:: No Diet Tolerance:: regular diet Lochia:: Small Feeding Type:: breast and bottle feeding Current Pain Level: 2/10 Resting comfortably this AM in NAD. Denies BRITT, CP, SOB, N/V/D, LE pain/swelling. Review of Systems Review of Systems: All systems reviewed & are unremarkable except as noted in HPI & below Physical Exam Physical Exam: General: patient resting comfortably, NAD, non-toxic in appearance, AA&O x 4, answers questions appropriately. Skin: warm, dry, intact HEENT: NC/AT, anicteric sclera, conjunctiva without injection, moist mucus membranes. Heart: +S1/S2, regular, no m/r/g Lungs: equal air entry bilaterally, no rales/rhonchi/wheezes Abd: +BS, soft, NT/ND, uterine fundus firm 3 FBs below umbilicus Ext: warm, no clubbing/cyanosis or edema, Jose's neg. Neuro: nonfocal, patient AA&O x 4, speech intact, no facial droop, moving all extremities on command. Results & Data Vital Signs (Past 12 Hours) Vital Signs Temp Pulse Resp BP Pulse Ox O2 Del Method 01/31/25 00:32 36.8 C 74 16 102/61 98 Room Air 01/30/25 19:09 36.8 C 88 18 105/61 98 Room Air Laboratory Results OB Labs: Blood Type B Positive 07/24/24 Antibody Screen NEGATIVE 07/24/24 Hgb 9.5 g/dl (12.0-16.0) L 12/01/24 Hct 29.1 % (37.0-47.0) L 12/01/24 MCV 84.1 fL (80.0-100.0) 07/24/24 Plt Count 208 K/uL (130-400) 07/24/24 Rubella IgG Antibody Immune (Immune) 07/24/24 Treponema pallidum Ab Negative (Negative) 12/01/24 Hep Bs Antigen Negative (Negative) 07/24/24 Hepatitis C Antibody Negative (Negative) 07/24/24 HIV 1&2 Ab/P24 Ag 4thGn Negative (Negative) 07/24/24 Glucose 1 Hr 50 gm 140 mg/dl (70-130) H 12/01/24 OB Optional Labs: Chlamydia trachomatis RNA Not Detected (NotDetected) 07/24/24 Neisseria gonorrhoeae RNA Not Detected (NotDetected) 07/24/24 Resident Activity Tracking Resident Involvement: Resident Care Provided Care Provided: OB Delivery
[2025-01-31 08:13] VITALS: BP 107/64; PULSE 81; TEMP 97.9
== END 2025-01-31 14:15 | disposition home or self-care (01) | DRG 768 ==
LOC: OPB 02:28 → 4S1 02:32 → 4E2 01-29 03:22